=== PATIENT | female | born 1965 | race Caucasian/White ===

== ENCOUNTER 2023-01-08 05:53 | Inpatient (IN) ==
--- NOTE | 2023-01-04 12:47 | Anesthesiology Consultation ---
Date of Service January 04, 2023 Assessment & Plan (1) Encounter for pre-operative examination: - COVID screening: Per assessment on 12/19: No known COVID-19 positive contacts or current COVID-19 related symptoms. Travel screen negative. Patient vaccinated. At surgeon discretion if preop Covid testing being done. - Check test AM DOS - PCP visit (12/04/22): "She is scheduled for lumpectomy at [facility] with Dr. Pereyra. She is also scheduled for lumbar surgery.. Patient cleared for upcoming procedure.. Patient cleared for lumbar surgery as well" - Family history of MH: Patient stated "father's first cousin during surgery from this, but my dad has had surgery before and never had any problems at all." Per clarification note from anesthesiologist (Paige Gonzales, 05/09/22)- "The patient has a family history of Malignant Hyperthermia and not pseudocholinesterase deficiency." > Patient had Right hip scope/bursectomy performed 05/09/22 at [facility] with MH precautions* > OR made aware that MH precautions needed d/t family hx. - Elevated creatinine: Preop labs done 12/04/22 had elevated creatinine at 1.8. No hx of CKD per chart review. Note written to PCP regarding elevated creatinine (Curtis Gunderson PAC)- Awaiting response. Chart Review Chart Review: Patient NOT seen in Pre Admission Testing History Surgery Operation Date: 01/08/23 07:45 Proposed Procedures p L5-S1 Decompression and Fusion, Spinal Cord Monitoring - Tony Gomez, Height/Weight Height: 5 ft 8 in Weight: 67.132 kg Allergies Allergy/AdvReac Type Severity Reaction Status Date / Time Penicillins Allergy Severe SWOLLEN Verified 12/19/22 11:18 LIPS tree nut Allergy Severe facial Verified 12/19/22 11:18 swelling peanuts Allergy Severe Swelling Uncoded 12/19/22 11:18 of Lip/Tongue/Throat Medications Home Medications Medication Instructions Recorded Confirmed Last Taken eszopiclone 2 mg tablet (Lunesta) 2 mg PO HS 05/04/22 12/19/22 05/08/22 fenofibrate nanocrystallized 145 145 mg PO QAM 05/04/22 12/19/22 05/08/22 mg tablet fluticasone 250 mcg-salmeterol 50 1 inh inhalation BID 08/12/19/22 05/09/22 mcg/dose blistr powdr for inhalation (Advair Diskus) levalbuterol tartrate 45 2 inh inhalation Q6H PRN Shortness 05/04/22 12/19/22 04/25/22 mcg/actuation aerosol inhaler Of Breath (Xopenex HFA) lisinopril 10 mg tablet 10 mg PO QAM 05/04/22 12/19/22 05/08/22 omeprazole 40 mg capsule,delayed 40 mg PO QAM 05/04/22 12/19/22 05/08/22 release cyanocobalamin (vitamin B-12) 1,000 mcg IM WK 12/19/22 12/19/22 Unknown 1,000 mcg/mL injection solution glucosamine-chondroitin 250 mg-200 2 tab PO QAM 12/19/22 12/19/22 Unknown mg tablet (Osteo Bi-Flex) tramadol 50 mg tablet 50 mg PO BID PRN Pain 12/19/22 12/19/22 Unknown Past Medical History Medical History Asthma GERD (gastroesophageal reflux disease) History of COVID-19 05/2022- one night fever/fatigue History of Holter monitoring Hx PACs noted per remote cardiology records Hypertension Invasive ductal carcinoma of breast Left breast - lumpectomy with lymph node removal scheduled at [facility] 12/25/22 Past Family History Family History Other No family history of adverse response to anesthesia Past Surgical History Surgical History Family history of malignant hyperthermia Patient stated "father's first cousin during surgery from this, but my dad has had surgery before and never had any problems at all" Per clarification note from anesthesiologist (Paige Gonzales, 05/09/22)- "The patient has a family history of Malignant Hyperthermia and not pseudocholinesterase deficiency." Patient had Right hip scope/bursectomy performed 05/09/22 at [facility] with p recautions* History of breast biopsy left breast History of hip surgery right hip arthroscopy Hx of colonoscopy Hx of wisdom tooth extraction Social History Smoking Status: Never smoker Do You Dip or Chew Tobacco: No Hx Alcohol Use: Yes Alcohol type: wine alcohol intake frequency: 0-2 drinks per day Hx Substance Use: No substance use type: does not use Testing Laboratory Results 12/04/22 WBC 6.0 H/H 11.3/34.6 PLATELETS 448 SODIUM 134 POTASSIUM 4.8 CHLORIDE 98 CO2 23 BUN 51 CREATININE 1.8 GLUCOSE 88 A1C 6.4% UA negative bacteria/nitrite/leukocytes Electrocardiogram Date: 12/04/22 SR at 71bpm. "Within normal limits" Chest X-Ray Date: 12/18/22 No active disease. The lungs are clear. Small metallic clip is seen in the soft tissues of the left breast. Echocardiogram Date: 09/29/18 LVEF 65 to 69%. Normal LV wall motion. No mitral valve prolapse present. Mild MR. Rhythm was sinus tachycardia during TTE. Compared to prior study 11/09/2011, there is no significant change per report.
[2023-01-08] MEDS ORDERED: ACETAMINOPHEN 500 MG TAB PO SCH (06:00)
[2023-01-08] MEDS ORDERED: CLINDAMYCIN/D5W 900 MG/50 ML BAG IV SCH (06:00)
[2023-01-08] MEDS ORDERED: LR 15ML/HR IV SCH (06:00)
[2023-01-08] MEDS ORDERED: CeleBREX 200 MG CAP PO SCH (06:00)
[2023-01-08] MEDS ORDERED: GABAPENTIN 600 MG DOSE PO SCH (06:00)
[2023-01-08 06:46] LABS: BUN Creatinine Ratio 30.4 (10-20); Calcium 10.5 mg/dl (8.6-10.3); Creatinine Clr Calc Pharmacy 55.8 ml/min; Est GFR (Non-African American) 53.5 ml/min; Potassium 4.3 mmol/L (3.5-5.1)
[2023-01-08 06:50] LABS: Pregnancy Test, Serum Negative (Negative)
[2023-01-08 06:56] LABS: Partial Thromboplastin Time 27.3 Seconds (21.0-31.0); Prothrombin Time 10.6 Seconds (9.0-12.0)
[2023-01-08] MEDS ORDERED: PROPOFOL IV EMULSION 10 MG/ML 100 ML VIAL IV ONE (07:03)
[2023-01-08] MEDS ORDERED: MIDAZOLAM HCL 1 MG/ML 2ML VIAL ONE (07:04)
[2023-01-08] MEDS ORDERED: fentaNYL citrate PF 100 MCG/2 ML VIAL ONE (07:04)
[2023-01-08] MEDS ORDERED: ROCURONIUM BROMIDE 10 MG/ML 5 ML VIAL IV ONE ×10 (07:04)
[2023-01-08] MEDS ORDERED: ONDANSETRON INJ 2 MG/ML 2 ML VIAL IV PRN ×2 (07:10→10:34)
[2023-01-08] MEDS ORDERED: ePHEDrine sulfate 50 MG/ML AMP IV PRN (07:10)
[2023-01-08] MEDS ORDERED: PROMETHAZINE HCL 6.25 MG in SODIUM CHLORIDE 0.9% 50 ML IV PRN (07:10)
[2023-01-08] MEDS ORDERED: ATROPINE SULFATE 0.1 MG/ML 10ML SYR IV PRN (07:10)
[2023-01-08] MEDS ORDERED: LIDOCAINE 2% MPF LOCAL 5 ML VIAL ONE (07:11)
[2023-01-08] MEDS ORDERED: ONDANSETRON INJ 2 MG/ML 2 ML VIAL ONE (07:11)
[2023-01-08] MEDS ORDERED: DEXAMETHASONE SOD INJ 4 MG/ML VIAL ONE ×2 (07:11→08:09)
[2023-01-08] MEDS ORDERED: KETAMINE 50 MG/5 ML SYRINGE ONE (07:15)
[2023-01-08] MEDS ORDERED: SUGAMMADEX SODIUM 200 MG/2 ML VIAL IV ONE (07:15)
[2023-01-08] MEDS ORDERED: BUPIVACAINE/EPINEPHRINE 0.25% 1:200,000 30 ML VIAL ONE (07:32)
--- NOTE | 2023-01-08 07:40 | History & Physical Bridge Note ---
Date of Service January 08, 2023 History & Physical Bridge Note I have examined the patient, reviewed the History & Physical and in the interval since the performance of the History & Physical I have noted the following changes of clinical significance: no changes noted
--- NOTE | 2023-01-08 07:41 | History & Physical Report ---
Date of Service January 08, 2023 Assessment & Plan (1) Neurogenic claudication due to lumbar spinal stenosis: Plan: L5-S1 decompression and fusion History of Present Illness Chief Complaint: Back and leg pain Primary Care Provider: Curtis Gunderson This is a 57-year-old female who presents with chronic persistent back and leg pain after failing course of nonoperative care she is here for surgical invention. Allergies Allergy/AdvReac Type Severity Reaction Status Date / Time peanut Allergy Severe Swelling Verified 01/08/23 07:06 of Lip/Tongue/Throat Penicillins Allergy Severe SWOLLEN Verified 01/08/23 06:16 LIPS tree nut Allergy Severe facial Verified 01/08/23 06:16 swelling Home Medications Medication Instructions Recorded Confirmed Type eszopiclone 2 mg tablet (Lunesta) 2 mg PO HS 05/04/22 01/08/23 History fenofibrate nanocrystallized 145 145 mg PO QAM 05/04/22 01/08/23 History mg tablet fluticasone 250 mcg-salmeterol 50 1 inh inhalation BID 05/04/22 01/08/23 History mcg/dose blistr powdr for inhalation (Advair Diskus) levalbuterol tartrate 45 2 inh inhalation Q6H PRN Shortness 05/04/22 01/08/23 History mcg/actuation aerosol inhaler Of Breath (Xopenex HFA) lisinopril 10 mg tablet 10 mg PO QAM 05/04/22 01/08/23 History omeprazole 40 mg capsule,delayed 40 mg PO QAM 05/04/22 01/08/23 History release cyanocobalamin (vitamin B-12) 1,000 mcg IM MONTHLY 12/19/22 01/08/23 History 1,000 mcg/mL injection solution glucosamine-chondroitin 250 mg-200 2 tab PO QAM 12/19/22 01/08/23 History mg tablet (Osteo Bi-Flex) tramadol 50 mg tablet 50 mg PO BID PRN Pain 12/19/22 01/08/23 History Past Med/Surg History Medical History Asthma GERD (gastroesophageal reflux disease) History of COVID-19 05/2022- one night fever/fatigue History of Holter monitoring Hx PACs noted per remote cardiology records Hypertension Invasive ductal carcinoma of breast Left breast - lumpectomy with lymph node removal scheduled at [facility] 12/25/22 Surgical History Family history of malignant hyperthermia Patient stated "father's first cousin during surgery from this, but my dad has had surgery before and never had any problems at all" Per clarification note from anesthesiologist (Paige Gonzales, 05/09/22)- "The patient has a family history of Malignant Hyperthermia and not p seudocholinesterase deficiency." Patient had Right hip scope/bursectomy performed 05/09/[address] [facility] with MH precautions* History of breast biopsy left breast History of hip surgery right hip arthroscopy Hx of colonoscopy Hx of wisdom tooth extraction Family History Other No family history of adverse response to anesthesia Social History Smoking Status: Never smoker Second Hand Exposure: No; Do You Dip or Chew Tobacco: No; Tobacco Cessation Education Requested by Patient: No Hx Alcohol Use: Yes Alcohol type: wine Hx Substance Use: No Preferred Language: Danish Communication Ability: Effective Burnisher Required: No Beliefs That Will Affect Care: None Current Living Situation: Significant Other Other Information That Helps Us Care for You: No Feels Safe at Home: Yes Safety Concerns: Feels Safe At This Time Assistive Devices: Glasses Physical Exam Physical Exam: Patient is alert and oriented Heart regular rhythm Lungs clear Results & Data Results & Data Vital Signs (Past 12 Hours) Vital Signs Temp Pulse Resp BP Pulse Ox O2 Del Method 01/08/23 06:10 37.2 C 88 18 118/86 96 Room Air
[2023-01-08] MEDS ORDERED: FLOSEAL HEMOSTATIC MATRIX 10ML TOP ONE (09:08)
--- NOTE | 2023-01-08 09:24 | Operative Report ---
Post Operative Report Pre & Post Diagnosis Operation Date: 01/08/23 07:45 Pre-Op Diagnosis: Neurogenic claudication due to lumbar spinal stenosis Spondylolisthesis L5-S1 Post-Op Diagnosis: Same I identified the patient and participated in the time-out.: Yes Procedure Operation Date: 01/08/23 07:45 Actual Procedures #1 lumbar impression bilateral facetectomies and foraminotomies L4-5 L5-S1. #2 posterior spinal fusion L5-S1. #3 placement posterior instrumentation L5-S1. #4 interbody fusion L5-S1. #5 placement of Spira 14 x 26 mm at L5-S1. #6 tonia cement locally harvested morselized autograft in the posterior gutters. #7 placement I factor amount of the test and interbody space and posterior lateral gutters. Surgeon Tony Gomez, Masonry Installer Delia Villarreal Estimated Blood Loss 50 Findings Consistent with Post-Op Diagnosis Specimens None Indications This is a 57-year-old female who presents above-mentioned diagnosis and failing course of nonoperative care she is here for the above-mentioned procedure. Description of Procedure Patient was met with identified informed consent obtained. Patient was then taken to the operative suite underwent a patient placed in a prone position the Celestine table on top of the Monty frame. All bony prominences well-padded eyes inspected to ensure no external pressure placed upon them. This point the lumbar spine was prepped and draped in normal sterile fashion. Sharp dissection with the assistance of Bovie cautery to form down to and exposing the lamina and transverse processes of L5 and sacral ala bilaterally. From caudal cephalad fashion complete laminectomy of L5 partial laminectomy of L4 was performed including bilateral medial facetectomies and foraminotomies addressing severe spinal stenosis. Pedicle screws were then placed in L5 and S1 levels bilaterally with assistance of fluoroscopy and the properly sized maria a placed. By way of a trans foraminal approach on the right a complete discectomy of L5-S1 was performed endplates curetted to subcortical bleeding bone and a 14 x 26 mm Spira cage with I factor tapped the position. The rods were then locked into final position bilaterally. The transverse processes of L5 and the sacral ala burred to subcortical bleeding bone. I factor amount of the test and locally harvested morselized autograft placed in the posterior gutters. 15 round LYNN drain inserted. The incision was then closed with 1 Vicryl the fascia 2-0 Vicryl subcutaneously and 4 Monocryl for final skin closure. Steri-Strips and sterile dressings placed. Patient awakened taken to PACU stable condition. Please note spinal cord monitoring was utilized at the procedure no changes note d. Lastly Delia Villarreal was present at the entire surgeon while the patient positioning complex portions of the surgery and final skin closure. I attest to the content of the Intraoperative Record and any orders documented therein. Any exceptions are noted below.
[2023-01-08] MEDS: fentaNYL citrate PF 100 MCG/2 ML VIAL IV PRN ×4 (09:33→09:48)
[2023-01-08] MEDS: HYDROmorphone INJ 1 MG/ML SYRINGE IV PRN ×4 (09:53→10:08)
--- NOTE | 2023-01-08 09:55 | Fluoroscopy Report ---
FL lumbar spine 2-3V CLINICAL HISTORY: L5-S1 DECOMPRESSION AND FUSION TECHNIQUE: 2 views were obtained with the C-arm in the OR with the above procedure. Total fluoroscopy time was 22.1 seconds. Radiation dose was 18.1 mGy. Comparison: None available at the time of this dictation. FINDINGS/IMPRESSION: Intraoperative images were obtained of L5-S1 discectomy and fusion Please correlate with intraoperative fluoroscopy and operative report. ACT 112: Negative or not required by law. Electronically signed by: Jeferson Rubi M.D. 01/08/2023 9:54 AM
[2023-01-08] MEDS ORDERED: LEVALBUTEROL TARTRATE 15 GM HFA.AER.AD INH PRN (10:34)
[2023-01-08] MEDS ORDERED: HYDROmorphone INJ 0.5 MG/0.5 ML SYR IV PRN (10:34)
[2023-01-08] MEDS ORDERED: MAGNESIUM HYDROXIDE SUSP 30 ML UDC PO PRN (10:34)
[2023-01-08] MEDS ORDERED: HYDROmorphone INJ 1 MG/ML SYRINGE IV PRN (10:34)
[2023-01-08] MEDS ORDERED: ALUMINUM/MAGNESIUM SUSP 30 ML UDC PO PRN (10:34)
[2023-01-08] MEDS ORDERED: bisacodyL 10 MG SUPP PR PRN (10:34)
[2023-01-08] MEDS ORDERED: SOD PHOSPHATE/SOD BIPHOSPHATE ENEMA 132 ML BTL PR PRN (10:34)
[2023-01-08] MEDS ORDERED: LORazepam 2 MG/1 ML VIAL IV PRN (10:34)
[2023-01-08] MEDS ORDERED: diphenhydrAMINE Capsule 25 MG CAP PO PRN (10:34)
[2023-01-08] MEDS ORDERED: hydrOXYzine HCl 25 MG TAB PO PRN (10:34)
[2023-01-08] MEDS ORDERED: ACETAMINOPHEN 500 MG TAB PO PRN (10:34)
[2023-01-08] MEDS ORDERED: NALOXONE HCL 0.4 MG/1 ML VIAL/CARP IV PRN (10:34)
[2023-01-08] MEDS ORDERED: traMADol HCL 50 MG TABLET PO PRN (10:34)
[2023-01-08] MEDS ORDERED: ACETAMINOPHEN 1,000 MG/100 ML VIAL IV PRN (10:34)
[2023-01-08] MEDS ORDERED: ONDANSETRON 4 MG OD TAB PO PRN (10:34)
[2023-01-08] MEDS ORDERED: FAMOTIDINE 20 MG TAB PO PRN (10:34)
[2023-01-08] MEDS ORDERED: METOCLOPRAMIDE HCL INJ 5 MG/ML 2 ML VIAL IV PRN (10:34)
[2023-01-08] MEDS ORDERED: PROMETHAZINE HCL 12.5 MG in SODIUM CHLORIDE 0.9% 50 ML IV PRN (10:34)
[2023-01-08] MEDS ORDERED: DO NOT ADMINISTER PNEUMOCOCCAL VACCINE PRN (10:34)
[2023-01-08] MEDS ORDERED: DO NOT ADMINISTER FLU VACCINE PRN (10:34)
[2023-01-08] MEDS ORDERED: LORazepam 0.5 MG TAB PO PRN (10:34)
[2023-01-08] MEDS: LACTATED RINGER'S 1,000 ML IV SCH ×2 (10:35→21:34)
--- NOTE | 2023-01-08 11:02 | Consultation ---
Date of Consultation January 08, 2023 Assessment & Plan (1) Neurogenic claudication due to lumbar spinal stenosis: (2) Hypertension: (3) Invasive ductal carcinoma of breast: (4) Asthma: (5) GERD (gastroesophageal reflux disease): Plan 57 year old female that presented today for decompression and fusion surgery under the care of Dr. Gomez after chronic back pain persisted with failed conservative management. Additional PMH HTN, HLD, asthma, ductal carcinoma of left breast. Pt progressing well in her recovery. Neurogenic claudication d/t lumbar spine stenosis: POD# 0 s/p L5-S1 decompression and fusion under the care of Dr. Gomez. EBL: 50mL Per ortho for pain control, wound care, anticoagulation and activities. Monitor H&H, continue incentive spirometry (demonstrated appropriate use) PT/OT when appropriate HTN: Takes Lisinopril; hold for today; restart tomorrow as ordered Creatinine 1.15 HLD: Takes Fenofibrate Asthma: stable Takes Advair and Xopenex PRN; continue Invasive ductal carcinoma of left breast: Left lumpectomy performed at [facility] on 12/25/22 Clean margins; no current role for chemotherapy Planning for radiation and oral Tamoxifen GERD: Takes Omeprazole; continue Disposition: PCP: Dr. Gunderson Code Status: Full Code VTE Prophylaxis: Teds and SCDs per surgical team I spent a total of 45 minutes coordinating, documenting, and providing care for this patient excluding time spent in the performance of separately billed services. All of the aforementioned completed while collaborating with the assigned attending physician for a full treatment plan. Please see their addendum for further details. Supervising Physician Co-Signing Physician Notes Pt is 57 y/o F with hx of L breast Ca s/p lumpectomy (with planning for rad iation), HTN, HLD, Asthma, Insomnia, GERD and L DDD admitted for L5-S1 discectomy and fusion and consulted for medical co-management. PE: NAD, well developed Lungs: CTA, no wheezing or crackles Cardiac: Normal S1/S2, no murmur Abd: ND, NT, soft MSK: able to move b/l toes and feet Psych: AAOx3, normal affect A/P: S/P L5-S1 discectomy and fusion: -POD#0 -pt is recovering well and normal VS -PT/OT -Pain management per primary team HTN: -due to low normal BP will hold Lisinopril 10mg today Asthma/Insomnia/GERD/HLD: -continue home meds Agree with A/P by AV Garcia History of Present Illness Requesting Physician: Dr. Gomez Reason for Consultation: post operative medical management Attending Physician: Tony Gomez, DO History of Present Illness Ms. Almaraz presented to the [facility] to proceed with an elective, planned decompression and fusion surgery of L5-S1 under the care of Dr. Gomez after failed conservative management. EBL 50mL without complications. Additional PMH includes HTN, HLD, asthma, ductal carcinoma of left breast, and GERD. Left lumpectomy was performed at [facility] on 12/25/22 with clean margins; no current role for chemotherapy, but planning for radiation and oral Tamoxifen. Pt denies GREEN, dizziness, lightheadedness, SOB, CP, palpitations, N/V/D, abdominal pain. Pt sitting in her hospital bed in no apparent distress. She is AAOx4 and has tolerated sips of clear liquids and denies neuopathic pain. Pt has LYNN drain x1 with shelly red blood. [facility] Hospitalist service was consulted for post-operative medical management. Thank you kindly for the consultation. We are available 08/04 for additional support. Please feel free to contact us via tiger text. Please see A/P for further details. Allergies Allergy/AdvReac Type Severity Reaction Status Date / Time peanut Allergy Severe Swelling Verified 01/08/23 07:06 of Lip/Tongue/Throat Penicillins Allergy Severe SWOLLEN Verified 01/08/23 06:16 LIPS tree nut Allergy Severe facial Verified 01/08/23 06:16 swelling Home Medications Medication Instructions Recorded Confirmed Type eszopiclone 2 mg tablet (Lunesta) 2 mg PO HS 05/04/22 01/08/23 History fenofibrate nanocrystallized 145 145 mg PO QAM 05/04/22 01/08/23 History mg tablet fluticasone 250 mcg-salmeterol 50 1 inh inhalation BID 05/04/22 01/08/23 History mcg/dose blistr powdr for inhalation (Advair Diskus) levalbuterol tartrate 45 2 inh inhalation Q6H PRN Shortness 05/04/22 01/08/23 History mcg/actuation aerosol inhaler Of Breath (Xopenex HFA) lisinopril 10 mg tablet 10 mg PO QAM 05/04/22 01/08/23 History omeprazole 40 mg capsule,delayed 40 mg PO QAM 05/04/22 01/08/23 History release cyanocobalamin (vitamin B-12) 1,000 mcg IM MONTHLY 12/19/22 01/08/23 History 1,000 mcg/mL injection solution glucosamine-chondroitin 250 mg-200 2 tab PO QAM 12/19/22 01/08/23 History mg tablet (Osteo Bi-Flex) tramadol 50 mg tablet 50 mg PO BID PRN Pain 12/19/22 01/08/23 History oxycodone 5 mg tablet 5 mg PO DAILY PRN pain #30 tabs 01/08/23 Rx tramadol 50 mg tablet 50 mg PO Q6H PRN pain, moderate 01/08/23 Rx #30 tabs Patient History Medical History (Updated 01/08/23 @ 10:57 by AV Benz) Asthma GERD (gastroesophageal reflux disease) History of COVID-19 05/2022- one night fever/fatigue History of Holter monitoring Hx PACs noted per remote cardiology records Hypertension Invasive ductal carcinoma of breast Left breast - lumpectomy with lymph node removal scheduled at [facility] 12/25/22 Surgical History Family history of malignant hyperthermia Patient stated "father's first cousin during surgery from this, but my dad has had surgery before and never had any problems at all" Per clarification note from anesthesiologist (Paige Gonzales, 05/09/22)- "The patient has a family history of Malignant Hyperthermia and not pseudocholinesterase deficiency." Patient had Right hip scope/bursectomy performed 05/09/22 at [facility] with MH precautions* History of breast biopsy left breast History of hip surgery right hip arthroscopy Hx of colonoscopy Hx of wisdom tooth extraction Family History Other No family history of adverse response to anesthesia Social History Smoking Status: Never smoker Second Hand Exposure: No; Do You Dip or Chew Tobacco: No; Tobacco Cessation Education Requested by Patient: No Hx Alcohol Use: Yes Alcohol type: wine Hx Substance Use: No Preferred Language: Chilean Communication Ability: Effective Dance Professor Required: No Beliefs That Will Affect Care: None Current Living Situation: Significant Other Other Information That Helps Us Care for You: No Feels Safe at Home: Yes Safety Concerns: Feels Safe At This Time Assistive Devices: Glasses Review of Systems Review of Systems: Neuro: (-) Falls, trauma, slurred speech HEENT: (-) GREEN, dizziness, dysphagia, visual or auditory changes CV: (-) CP, palpitations, swelling Resp: (-) SOB GI: (-) appetite changes, N/V/D, bowel changes : (-) urinary changes Skin: (-) rashes Psych: (-) anxiety, depression Physical Exam Physical Exam: See De. [place]'prachi physical examination Results & Data Vital Signs (Past 12 Hours) Vital Signs Temp Pulse Pulse Resp BP BP Pulse Ox 01/08/23 10:32 36.8 C 82 18 128/74 99 01/08/23 10:25 36.4 C L 97 H 12 115/69 97 01/08/23 10:15 81 22 116/74 96 01/08/23 09:45 36.5 C 80 21 120/74 97 01/08/23 10:05 87 24 125/81 98 01/08/23 09:55 82 15 121/75 95 01/08/23 09:35 83 18 109/85 97 01/08/23 09:29 36.5 C 78 17 110/62 99 01/08/23 06:10 37.2 C 88 18 118/86 96 O2 Del Method O2 Flow Rate 01/08/23 10:32 Room Air 01/08/23 10:25 Room Air 01/08/23 10:15 Room Air 01/08/23 09:45 Room Air 01/08/23 10:05 Room Air 01/08/23 09:55 Room Air 01/08/23 09:35 Room Air 01/08/23 09:29 Oxymask 6 01/08/23 06:10 Room Air Diagnostic Findings Lumbar Spine X-Ray 01/08/23 07:45 FL lumbar spine 2-3V CLINICAL HISTORY: L5-S1 DECOMPRESSION AND FUSION TECHNIQUE: 2 views were obtained with the C-arm in the OR with the above p rocedure. Total fluoroscopy time was 22.1 seconds. Radiation dose was 18.1 mGy. Comparison: None available at the time of this dictation. FINDINGS/IMPRESSION: Intraoperative images were obtained of L5-S1 discectomy and fusion Please correlate with intraoperative fluoroscopy and operative report. ACT 112: Negative or not required by law. Electronically signed by: Jeferson Rubi M.D. 01/08/2023 9:54 AM
[2023-01-08] MEDS: FLUTICASONE/VILANTEROL 200/25MCG 14 PUFFS/INHALER INH SCH (11:57)
[2023-01-08] MEDS: oxyCODONE HCL IR 5 MG TAB (IMMEDIATE RELEASE) PO PRN ×2 (12:01→20:12)
--- NOTE | 2023-01-08 12:29 | Anesthesiology Progress Note ---
Date of Service January 08, 2023 Anesthesia Post Procedure Vital Signs Vital Signs: Temp Pulse Pulse Resp BP BP Pulse Ox 01/08/23 11:30 87 18 135/83 98 01/08/23 11:10 01/08/23 11:02 36.7 C 90 18 125/80 96 01/08/23 10:32 36.8 C 82 18 128/74 99 01/08/23 10:25 36.4 C L 97 H 12 115/69 97 01/08/23 10:15 81 22 116/74 96 01/08/23 09:45 36.5 C 80 21 120/74 97 01/08/23 10:05 87 24 125/81 98 01/08/23 09:55 82 15 121/75 95 01/08/23 09:35 83 18 109/85 97 01/08/23 09:29 36.5 C 78 17 110/62 99 01/08/23 06:10 37.2 C 88 18 118/86 96 O2 Del Method O2 Flow Rate 01/08/23 11:30 Room Air 01/08/23 11:10 Room Air 01/08/23 11:02 Room Air 01/08/23 10:32 Room Air 01/08/23 10:25 Room Air 01/08/23 10:15 Room Air 01/08/23 09:45 Room Air 01/08/23 10:05 Room Air 01/08/23 09:55 Room Air 01/08/23 09:35 Room Air 01/08/23 09:29 Oxymask 6 01/08/23 06:10 Room Air Pain Intensity Back: Pain Intensity: 5 Transfer of Care Handoff Completed per policy Notes Mental Status: alert / awake / arousable and participated in evaluation Patient Amnestic to Procedure: Yes Nausea / Vomiting: adequately controlled Pain: adequately controlled Airway Patency, RR, SpO2: stable & adequate BP & HR: stable & adequate Hydration State: stable & adequate Anesthetic Complications: no major complications apparent and Pt Satisfied with anesthetic care
[2023-01-08] MEDS: CLINDAMYCIN/D5W 600 MG/50 ML BAG IV SCH (17:04)
[2023-01-08] MEDS: DOCUSATE SODIUM/SENNA 50/8.6MG TAB PO SCH (20:12)
[2023-01-08] MEDS: ESZOPICLONE 1 MG TAB PO SCH (21:29)
[2023-01-08] MEDS ORDERED: SIMETHICONE 80 MG CHEW PO STA (21:31)
[2023-01-09] MEDS: CLINDAMYCIN/D5W 600 MG/50 ML BAG IV SCH (00:28)
[2023-01-09] MEDS: oxyCODONE HCL IR 5 MG TAB (IMMEDIATE RELEASE) PO PRN ×3 (05:17→20:13)
[2023-01-09] MEDS: POLYETHYLENE (MIRALAX) 17 GM PACK PO SCH ×4 (05:18→22:00)
[2023-01-09] MEDS: LACTATED RINGER'S 1,000 ML IV SCH (06:34)
[2023-01-09 07:36] LABS: Basophils # (auto) 0.02 K/uL (0-0.2); Basophils % (auto) 0.3 %; Eosinophils # (auto) 0.14 K/uL (0-0.50); Eosinophils % (auto) 1.8 %; Hematocrit (blood only) 32.5 % (37.0-47.0); Immature Granulocytes # (auto) 0.06 K/uL (0.01-0.20); Immature Granulocytes % (auto) 0.8 %; Lymphocytes # (auto) 1.88 K/uL (1.2-3.4); Lymphocytes % (auto) 24.4 %; Mean Corpuscular Hemoglobin 31.3 pg (25.0-34.0); Mean Corpuscular Hgb Conc 33.8 g/dL (32.0-36.0); Mean Corpuscular Volume 92.6 fL (80.0-100.0); Mean Platelet Volume 10.1 fL (9.4-12.4); Monocytes % (auto) 10.4 %; Neutrophils # (auto) 4.81 K/uL (1.40-6.50); Neutrophils % (auto) 62.3 %; Platelet Count 394 K/uL (130-400); RDW Coefficient of Variation 13.2 % (11.5-14.5); Red Blood Count 3.51 M/uL (4.20-5.40); White Blood Count 7.71 K/ul (4.8-10.8)
[2023-01-09] MEDS: FENOFIBRATE NANOCRYSTALLIZED 145 MG TABLET PO SCH (07:53)
[2023-01-09] MEDS: dexAMETHasone 6 MG in SYRINGE 0 ML IV SCH (07:53)
[2023-01-09] MEDS: lisinopril 10 MG TAB PO SCH (07:53)
[2023-01-09] MEDS: PANTOprazole 40 MG TAB PO SCH (07:53)
[2023-01-09] MEDS: FLUTICASONE/VILANTEROL 200/25MCG 14 PUFFS/INHALER INH SCH (07:53)
[2023-01-09] MEDS ORDERED: CYANOCOBALAMIN 1000 MCG/ML VIAL IM SCH (09:00)
[2023-01-09 09:18] LABS: BUN Creatinine Ratio 19.8 (10-20); Calcium 9.6 mg/dl (8.6-10.3); Creatinine Clr Calc Pharmacy 63.5 ml/min; Est GFR (African American) 72.6 ml/min; Est GFR (Non-African American) 62.6 ml/min; Potassium 4.1 mmol/L (3.5-5.1)
[2023-01-09] MEDS ORDERED: SIMETHICONE 80 MG CHEW PO PRN (13:10)
--- NOTE | 2023-01-09 13:10 | Hospitalist Progress Note ---
Date of Service January 09, 2023 Assessment & Plan (1) Neurogenic claudication due to lumbar spinal stenosis: (2) Hypertension: (3) Invasive ductal carcinoma of breast: (4) Asthma: (5) GERD (gastroesophageal reflux disease): Plan 57 year old female that presented today for decompression and fusion surgery under the care of Dr. Gomez after chronic back pain persisted with failed conservative management. Additional PMH HTN, HLD, asthma, ductal carcinoma of left breast. Pt progressing well in her recovery. Neurogenic claudication d/t lumbar spine stenosis: POD# 1 s/p L5-S1 decompression and fusion under the care of Dr. Gomez. EBL: 50mL Per ortho for pain control, wound care, anticoagulation and activities. Monitor H&H, continue incentive spirometry (demonstrated appropriate use) PT/OT when appropriate HTN: Takes Lisinopril; hold for today; restart tomorrow as ordered, parameters placed Creatinine 1.15 HLD: Takes Fenofibrate Asthma: stable Takes Advair and Xopenex PRN; continue Invasive ductal carcinoma of left breast: Left lumpectomy performed at [facility] on 12/25/22 Clean margins; no current role for chemotherapy Planning for radiation and oral Tamoxifen GERD: Takes Omeprazole; continue Disposition: PCP: Dr. Gunderson Code Status: Full Code VTE Prophylaxis: Teds and SCDs per surgical team I spent a total of 40 minutes coordinating, documenting, and providing care for this patient excluding time spent in the performance of separately billed services. All of the aforementioned completed while collaborating with the assigned attending physician for a full treatment plan. Please see their addendum for further details. Admission and Anticipated Discharge Date Admission Date: January 08, 2023 Supervising Physician Co-Signing Physician Notes Pt seen and examined by me, care coordinated w/ BYohan Guzman PA-C, please refer to her note above for further detail. Patient status post lumbar surgery, and she feels well. Says that she can finally walk, without having right lower extremity pain. Denies any fevers chills chest pain shortness of breath. Denies abdominal pain nausea vomiting. Heart sounds regular, lung sounds clear to auscultation. Abdomen soft nontender nondistended. Patient moves extremities. Hgb down to 11, cont. to monitor. MD Tri Subjective Patient seen and examined in room 308. Follow-up lumbar surgery. "This is the best I ever felt." Denies pain except for mild incisional pain. Denies f/c/s, chest pain, sob, n/v/d, abd pain. Passing flatus no stool. Review of Systems Review of Systems: All systems reviewed & are unremarkable except as noted in HPI & below Physical Exam Physical Exam: Gen: WD/WN, NAD, A&O x3 HEENT: Normocephalic, atraumatic, conjunctivae moist, sclerae anicteric, mucous membranes moist. Lung: Clear to Auscultation bilaterally, no wheezes/rales/rhonchi Heart: Regular rate, regular rhythm, no murmurs, rubs, or gallops Abdomen: Soft, NT, ND +BS x 4 Extremities: No edema, lumbar dressing CDI, LYNN drain with serosang drainage Skin: Warm, no rash, negative turgor. Results & Data Results & Data Vital Signs (Past 12 Hours) Vital Signs Temp Pulse Pulse Resp BP Pulse Ox O2 Del Method 01/09/23 11:13 36.8 C 96 H 16 106/71 95 Room Air 01/09/23 09:59 Room Air 01/09/23 07:16 37.0 C 90 16 130/75 99 Room Air 01/09/23 02:10 36.7 C 92 H 16 109/64 96 Room Air Laboratory Results Short CBC 01/09/23 Range/Units 07:07 WBC 7.71 (4.8-10.8) K/ul Hgb 11.0 L (12.0-16.0) g/dl Hct 32.5 L (37.0-47.0) % Plt Count 394 (130-400) K/uL BMP 01/09/23 07:07 Sodium 136 Potassium 4.1 Chloride 100 Carbon Dioxide 28 BUN 20 Creatinine 1.01 Glucose 102 H Calcium 9.6 Medications Administered Current Inpatient Medications Acetaminophen (Acetaminophen 500 Mg Tab) 1,000 mg PO Q8H PRN PRN Reason: MILD Pain Scale 1,2,3 & Pre PT Stop: 02/07/23 10:33 Last Admin: 01/09/23 07:55 Dose: 1,000 mg Al Hydrox/Mg Hydrox/Simethicone (Aluminum/Magnesium Susp 30 Ml Udc) 30 ml PO Q6H PRN PRN Reason: Dyspepsia Stop: 02/07/23 10:33 Last Admin: 01/08/23 20:13 Dose: 30 ml Bisacodyl (Bisacodyl 10 Mg Supp) 10 mg [place] DAILY PRN PRN Reason: Constipation Stop: 02/07/23 10:33 Cyanocobalamin (Cyanocobalamin 1000 Mcg/Ml Vial) 1,000 mcg IM Q30D@0900 [facility] Stop: 02/08/23 08:59 Last Admin: 01/09/23 07:52 Dose: Not Given Diphenhydramine HCl (Diphenhydramine Capsule 25 Mg Cap) 25 mg PO Q6H PRN PRN Reason: Allergic Rhinitis/Insomnia Stop: 02/07/23 10:33 Eszopiclone (Eszopiclone 1 Mg Tab) 2 mg PO HS [facility] Stop: 02/07/23 20:59 Last Admin: 01/08/23 21:29 Dose: 2 mg Famotidine (Famotidine 20 Mg Tab) 20 mg PO Q12H PRN PRN Reason: Dyspepsia Stop: 02/07/23 10:33 Fenofibrate (Fenofibrate Nanocrystallized 145 Mg Tablet) 145 mg PO QAM [facility] Stop: 02/08/23 08:59 Last Admin: 01/09/23 07:53 Dose: 145 mg Fluticasone/Vilanterol (Fluticasone/Vilanterol 200/25mcg 14 Puffs/Inhaler) 1 puffs INH DAILY [facility] Stop: 02/07/23 11:29 Last Admin: 01/09/23 07:53 Dose: 1 puffs Hydromorphone HCl (Hydromorphone Inj 0.5 Mg/0.5 Ml Syr) 0.5 mg IV Q3H PRN PRN Reason: MODERATE Pain (Scale 4,5,6) & Pre PT Stop: 01/22/23 10:33 Hydromorphone HCl (Hydromorphone Inj 1 Mg/Ml Syringe) 1 mg IV Q3H PRN PRN Reason: SEVERE Pain (Scale 7,8,9,10) Stop: 01/22/23 10:33 Hydroxyzine HCl (Hydroxyzine Hcl 25 Mg Tab) 25 mg PO Q8H PRN PRN Reason: Anxiety Stop: 02/07/23 10:33 Lactated Ringer's (Lr) 1,000 mls @ 100 mls/hr IV .Q10H [facility] Stop: 02/07/23 10:33 Last Admin: 01/09/23 06:34 Dose: Not Given Promethazine HCl 12.5 mg/ (Sodium Chloride) 50.5 mls @ 202 mls/hr IV Q6H PRN PRN Reason: Nausea &/or Vomiting Stop: 02/07/23 10:33 Dexamethasone 6 mg/ Syringe 1.5 mls @ 1 mls/min IV DAILY [facility] Stop: 01/11/23 09:02 Last Admin: 01/09/23 07:53 Dose: 1 mls/min Influenza Virus Vaccine Quadrival (Do Not Administer Flu Vaccine) 1 each N/A PRN PRN PRN Reason: Notification Stop: 02/07/23 10:33 Levalbuterol HCl (Levalbuterol Tartrate 15 Gm Hfa.Aer.Ad) 2 puffs INH Q6H PRN PRN Reason: Shortness Of Breath Stop: 02/07/23 10:33 Lisinopril (Lisinopril 10 Mg Tab) 10 mg PO QAM [facility] Stop: 02/08/23 08:59 Last Admin: 01/09/23 07:53 Dose: 10 mg Lorazepam (Lorazepam 0.5 Mg Tab) 0.5 mg PO Q8H PRN PRN Reason: Sedation/Anxiety Stop: 02/07/23 10:33 Lorazepam (Lorazepam 2 Mg/1 Ml Vial) 0.5 mg IV Q8H PRN PRN Reason: Sedation/Anxiety Stop: 02/07/23 10:33 Magnesium Hydroxide (Magnesium Hydroxide Susp 30 Ml Udc) 30 ml PO Q24H PRN PRN Reason: Constipation Stop: 02/07/23 10:33 Metoclopramide HCl (Metoclopramide Hcl Inj 5 Mg/Ml 2 Ml Vial) 10 mg IV Q6H PRN PRN Reason: Nausea &/or Vomiting Stop: 02/07/23 10:33 Naloxone HCl (Naloxone Hcl 0.4 Mg/1 Ml Vial/Carp) 0.1 mg IV Q5M PRN PRN Reason: Oversedation/Resp depression Stop: 02/07/23 10:33 Ondansetron HCl (Ondansetron Inj 2 Mg/Ml 2 Ml Vial) 4 mg IV Q6H PRN PRN Reason: Nausea &/or Vomiting Stop: 02/07/23 10:33 Ondansetron HCl (Ondansetron 4 Mg Od Tab) 4 mg PO Q6H PRN PRN Reason: Nausea Stop: 02/07/23 10:33 Oxycodone HCl (Oxycodone Hcl Ir 5 Mg Tab (Immediate Release)) 5 - 10 mg PO Q4H PRN PRN Reason: Pain & Pre PT Stop: 01/22/23 10:33 Last Admin: 01/09/23 12:20 Dose: 10 mg Pantoprazole Sodium (Pantoprazole 40 Mg Tab) 40 mg PO QAM [facility] Stop: 02/08/23 08:59 Last Admin: 01/09/23 07:53 Dose: 40 mg Pneumococcal Polyvalent Vaccine (Do Not Administer Pneumococcal Vaccine) 1 each N/A PRN PRN PRN Reason: Notification Stop: 02/07/23 10:33 Polyethylene Glycol (Polyethylene (Miralax) 17 Gm Pack) 17 gm PO Q6 [facility] Stop: 02/08/23 05:59 Last Admin: 01/09/23 12:10 Dose: Not Given Senna/Docusate Sodium (Docusate Sodium/Senna 50/8.6mg Tab) 2 tab PO HS [facility] Stop: 02/07/23 20:59 Last Admin: 01/08/23 20:12 Dose: 2 tab Sodium Biphosphate/Sodium Phosphate (Sod Phosphate/Sod Biphosphate Enema 132 Ml Btl) 132 ml OK ONE PRN PRN Reason: Constipation Stop: 02/07/23 10:33 Tramadol HCl (Tramadol Hcl 50 Mg Tablet) 50 - 100 mg PO Q4H PRN PRN Reason: Moderate-Severe pain & Pre PT Stop: 02/07/23 10:33
[2023-01-09] MEDS ORDERED: SIMETHICONE 80 MG CHEW PO ONE (13:46)
--- NOTE | 2023-01-09 14:08 | Orthopedic Progress Note ---
Date of Service January 09, 2023 Assessment & Plan (1) Neurogenic claudication due to lumbar spinal stenosis: Plan: This time continue physical therapy monitor LYNN operatively discharge home in the next few days. Admission and Anticipated Discharge Date Admission Date: January 08, 2023 Subjective Back pain controlled leg pain markedly improved Physical Exam Physical Exam: Patient is good strength testing markedly comfortable. She is in the chair at the bedside. Results & Data Vital Signs (Past 12 Hours) Vital Signs Temp Pulse Pulse Resp BP Pulse Ox O2 Del Method 01/09/23 11:13 36.8 C 96 H 16 106/71 95 Room Air 01/09/23 09:59 Room Air 01/09/23 07:16 37.0 C 90 16 130/75 99 Room Air 01/09/23 02:10 36.7 C 92 H 16 109/64 96 Room Air
[2023-01-09] MEDS: DOCUSATE SODIUM/SENNA 50/8.6MG TAB PO SCH (20:13)
[2023-01-09] MEDS: ESZOPICLONE 1 MG TAB PO SCH (21:58)
[2023-01-10] MEDS: POLYETHYLENE (MIRALAX) 17 GM PACK PO SCH (05:40)
[2023-01-10 07:39] LABS: Hematocrit (blood only) 33.4 % (37.0-47.0); Hemoglobin 11.2 g/dl (12.0-16.0); Mean Corpuscular Hemoglobin 31.3 pg (25.0-34.0); Mean Corpuscular Hgb Conc 33.5 g/dL (32.0-36.0); Mean Corpuscular Volume 93.3 fL (80.0-100.0); Mean Platelet Volume 10.2 fL (9.4-12.4); Platelet Count 394 K/uL (130-400); RDW Coefficient of Variation 13.4 % (11.5-14.5); RDW Standard Deviation 46.2 fL (36.4-46.3); Red Blood Count 3.58 M/uL (4.20-5.40); White Blood Count 7.76 K/ul (4.8-10.8)
[2023-01-10 07:52] LABS: BUN Creatinine Ratio 23.2 (10-20); Creatinine Clr Calc Pharmacy 67.5 ml/min; Est GFR (African American) 78.2 ml/min; Est GFR (Non-African American) 67.4 ml/min; Potassium 4.3 mmol/L (3.5-5.1)
--- NOTE | 2023-01-10 08:13 | Hospitalist Progress Note ---
Date of Service January 10, 2023 Assessment & Plan (1) Neurogenic claudication due to lumbar spinal stenosis: (2) Hypertension: (3) Invasive ductal carcinoma of breast: (4) Asthma: (5) GERD (gastroesophageal reflux disease): Plan 57 year old female that presented today for decompression and fusion surgery under the care of Dr. Gomez after chronic back pain persisted with failed conservative management. Additional PMH HTN, HLD, asthma, ductal carcinoma of left breast. Pt progressing well in her recovery. Neurogenic claudication d/t lumbar spine stenosis: POD# 2 s/p L5-S1 decompression and fusion under the care of Dr. Gomez. Per ortho for pain control, wound care, anticoagulation and activities. Monitor H&H, continue incentive spirometry (demonstrated appropriate use) Current Hgb 11.2 - stable from yesterday PT/OT when appropriate HTN: Restart Lisinopril Creatinine 0.9 HLD: Takes Fenofibrate Asthma: stable Takes Advair and Xopenex PRN; continue Invasive ductal carcinoma of left breast: Left lumpectomy performed at [facility] on 12/25/22 Clean margins; no current role for chemotherapy Planning for radiation and oral Tamoxifen GERD: Takes Omeprazole; continue Disposition: PCP: Dr. Gunderson Code Status: Full Code VTE Prophylaxis: Teds and SCDs per surgical team Admission and Anticipated Discharge Date Admission Date: January 08, 2023 Subjective Patient seen in follow up, of med consult, s/p spinal surgery Sitting up in chair, in NAD Feels well, denies any pain in R LE, able to ambulate and she is very excited about that Some soreness at back from surgery No fevers, chills, chest pain, shortness of breath, n/v/d, abd pain. Passing flatus no stool. Review of Systems Review of Systems: All systems reviewed & are unremarkable except as noted in Subjective Physical Exam Physical Exam: Gen: WD/WN, NAD, A&O x3 HEENT: Normocephalic, atraumatic, conjunctivae moist, sclerae anicteric, mucous membranes moist. Lung: Clear to Auscultation bilaterally, no wheezes/rales/rhonchi Heart: Regular rate, regular rhythm, no murmurs, rubs, or gallops Abdomen: Soft, NT, ND +BS x 4 Extremities: No edema, lumbar dressing CDI, LYNN drain with serosang drainage Skin: Warm, no rash, negative turgor. Results & Data Results & Data Vital Signs (Past 12 Hours) Vital Signs Temp Pulse Resp BP Pulse Ox O2 Del Method 01/10/23 07:49 36.9 C 95 H 16 113/80 99 Room Air 01/09/23 22:03 36.5 C 89 18 117/70 99 Room Air Laboratory Results 01/10/23 01/10/23 01/09/23 Range/Units 07:00 07:00 07:07 WBC 7.76 (4.8-10.8) K/ul RBC 3.58 L (4.20-5.40) M/uL Hgb 11.2 L (12.0-16.0) g/dl Hct 33.4 L (37.0-47.0) % MCV 93.3 (80.0-100.0) fL MCH 31.3 (25.0-34.0) pg MCHC 33.5 (32.0-36.0) g/dL RDW Std Deviation 46.2 (36.4-46.3) fL RDW Coeff of Lucrecia 13.4 (11.5-14.5) % Plt Count 394 (130-400) K/uL MPV 10.2 (9.4-12.4) fL Sodium 135 L 136 (136-145) mmol/L Potassium 4.3 4.1 (3.5-5.1) mmol/L Chloride 100 100 (98-107) mmol/L Carbon Dioxide 28 28 (21-32) mmol/L Anion Gap 7 8 (3-11) BUN 22 20 (6-23) mg/dl Creatinine 0.95 1.01 (0.6-1.2) mg/dl Est Cr Clr Drug Dosing 67.5 63.5 ml/min Est GFR ( Amer) 78.2 72.6 ml/min Est GFR (Non-Af Amer) 67.4 62.6 ml/min BUN/Creatinine Ratio 23.2 H 19.8 (10-20) Glucose 94 102 H (70-99(Fasting)) mg/dl Calcium 10.0 9.6 (8.6-10.3) mg/dl Medications Administered Current Inpatient Medications Acetaminophen (Acetaminophen 500 Mg Tab) 1,000 mg PO Q8H PRN PRN Reason: MILD Pain Scale 1,2,3 & Pre PT Stop: 02/07/23 10:33 Last Admin: 01/09/23 07:55 Dose: 1,000 mg Al Hydrox/Mg Hydrox/Simethicone (Aluminum/Magnesium Susp 30 Ml Udc) 30 ml PO Q6H PRN PRN Reason: Dyspepsia Stop: 02/07/23 10:33 Last Admin: 01/08/23 20:13 Dose: 30 ml Bisacodyl (Bisacodyl 10 Mg Supp) 10 mg [place] DAILY PRN PRN Reason: Constipation Stop: 02/07/23 10:33 Cyanocobalamin (Cyanocobalamin 1000 Mcg/Ml Vial) 1,000 mcg IM Q30D@0900 [facility] Stop: 02/08/23 08:59 Last Admin: 01/09/23 07:52 Dose: Not Given Diphenhydramine HCl (Diphenhydramine Capsule 25 Mg Cap) 25 mg PO Q6H PRN PRN Reason: Allergic Rhinitis/Insomnia Stop: 02/07/23 10:33 Eszopiclone (Eszopiclone 1 Mg Tab) 2 mg PO HS [facility] Stop: 02/07/23 20:59 Last Admin: 01/09/23 21:58 Dose: 2 mg Famotidine (Famotidine 20 Mg Tab) 20 mg PO Q12H PRN PRN Reason: Dyspepsia Stop: 02/07/23 10:33 Fenofibrate (Fenofibrate Nanocrystallized 145 Mg Tablet) 145 mg PO QAM [facility] Stop: 02/08/23 08:59 Last Admin: 01/09/23 07:53 Dose: 145 mg Fluticasone/Vilanterol (Fluticasone/Vilanterol 200/25mcg 14 Puffs/Inhaler) 1 puffs INH DAILY [facility] Stop: 02/07/23 11:29 Last Admin: 01/09/23 07:53 Dose: 1 puffs Hydromorphone HCl (Hydromorphone Inj 0.5 Mg/0.5 Ml Syr) 0.5 mg IV Q3H PRN PRN Reason: MODERATE Pain (Scale 4,5,6) & Pre PT Stop: 01/22/23 10:33 Hydromorphone HCl (Hydromorphone Inj 1 Mg/Ml Syringe) 1 mg IV Q3H PRN PRN Reason: SEVERE Pain (Scale 7,8,9,10) Stop: 01/22/23 10:33 Hydroxyzine HCl (Hydroxyzine Hcl 25 Mg Tab) 25 mg PO Q8H PRN PRN Reason: Anxiety Stop: 02/07/23 10:33 Promethazine HCl 12.5 mg/ (Sodium Chloride) 50.5 mls @ 202 mls/hr IV Q6H PRN PRN Reason: Nausea &/or Vomiting Stop: 02/07/23 10:33 Dexamethasone 6 mg/ Syringe 1.5 mls @ 1 mls/min IV DAILY [facility] Stop: 01/11/23 09:02 Last Admin: 01/09/23 07:53 Dose: 1 mls/min Influenza Virus Vaccine Quadrival (Do Not Administer Flu Vaccine) 1 each N/A PRN PRN PRN Reason: Notification Stop: 02/07/23 10:33 Levalbuterol HCl (Levalbuterol Tartrate 15 Gm Hfa.Aer.Ad) 2 puffs INH Q6H PRN PRN Reason: Shortness Of Breath Stop: 02/07/23 10:33 Lisinopril (Lisinopril 10 Mg Tab) 10 mg PO QAM [facility] Stop: 02/08/23 08:59 Last Admin: 01/09/23 07:53 Dose: 10 mg Lorazepam (Lorazepam 0.5 Mg Tab) 0.5 mg PO Q8H PRN PRN Reason: Sedation/Anxiety Stop: 02/07/23 10:33 Lorazepam (Lorazepam 2 Mg/1 Ml Vial) 0.5 mg IV Q8H PRN PRN Reason: Sedation/Anxiety Stop: 02/07/23 10:33 Magnesium Hydroxide (Magnesium Hydroxide Susp 30 Ml Udc) 30 ml PO Q24H PRN PRN Reason: Constipation Stop: 02/07/23 10:33 Metoclopramide HCl (Metoclopramide Hcl Inj 5 Mg/Ml 2 Ml Vial) 10 mg IV Q6H PRN PRN Reason: Nausea &/or Vomiting Stop: 02/07/23 10:33 Naloxone HCl (Naloxone Hcl 0.4 Mg/1 Ml Vial/Carp) 0.1 mg IV Q5M PRN PRN Reason: Oversedation/Resp depression Stop: 02/07/23 10:33 Ondansetron HCl (Ondansetron Inj 2 Mg/Ml 2 Ml Vial) 4 mg IV Q6H PRN PRN Reason: Nausea &/or Vomiting Stop: 02/07/23 10:33 Ondansetron HCl (Ondansetron 4 Mg Od Tab) 4 mg PO Q6H PRN PRN Reason: Nausea Stop: 02/07/23 10:33 Oxycodone HCl (Oxycodone Hcl Ir 5 Mg Tab (Immediate Release)) 5 - 10 mg PO Q4H PRN PRN Reason: Pain & Pre PT Stop: 01/22/23 10:33 Last Admin: 01/09/23 20:13 Dose: 10 mg Pantoprazole Sodium (Pantoprazole 40 Mg Tab) 40 mg PO QAM [facility] Stop: 02/08/23 08:59 Last Admin: 01/09/23 07:53 Dose: 40 mg Pneumococcal Polyvalent Vaccine (Do Not Administer Pneumococcal Vaccine) 1 each N/A PRN PRN PRN Reason: Notification Stop: 02/07/23 10:33 Polyethylene Glycol (Polyethylene (Miralax) 17 Gm Pack) 17 gm PO Q6 [facility] Stop: 02/08/23 05:59 Last Admin: 01/10/23 05:40 Dose: Not Given Senna/Docusate Sodium (Docusate Sodium/Senna 50/8.6mg Tab) 2 tab PO HS [facility] Stop: 02/07/23 20:59 Last Admin: 01/09/23 20:13 Dose: 2 tab Simethicone (Simethicone 80 Mg Chew) 80 mg PO Q6H PRN PRN Reason: Flatulence Stop: 02/08/23 13:09 Sodium Biphosphate/Sodium Phosphate (Sod Phosphate/Sod Biphosphate Enema 132 Ml Btl) 132 ml [place] ONE PRN PRN Reason: Constipation Stop: 02/07/23 10:33 Tramadol HCl (Tramadol Hcl 50 Mg Tablet) 50 - 100 mg PO Q4H PRN PRN Reason: Moderate-Severe pain & Pre PT Stop: 02/07/23 10:33
--- NOTE | 2023-01-10 09:07 | Discharge Summary ---
Date of Service January 10, 2023 Admission HPI Per Admitting Provider This is a 57-year-old female who presents with chronic persistent back and leg pain after failing course of nonoperative care she is here for surgical invention. Principal Diagnosis Lumbar spinal stenosis with radiculopathy Discharge Data Allergies Allergy/AdvReac Type Severity Reaction Status Date / Time peanut Allergy Severe Swelling Verified 01/08/23 07:06 of Lip/Tongue/Throat Penicillins Allergy Severe SWOLLEN Verified 01/08/23 06:16 LIPS tree nut Allergy Severe facial Verified 01/08/23 06:16 swelling Consultations 01/08/23 10:34 Consult Hospitalist Routine Procedures Performed Operation Date: 01/08/23 07:45 Actual Procedures p L5-S1 Decompression and Fusion, Spinal Cord Monitoring(Not Applicable) - Tony Gomez DO Ordered Studies 01/08/23 07:45 FL lumbar spine 2-3V Routine Hospital Course (1) Neurogenic claudication due to lumbar spinal stenosis: Patient underwent lumbar decompression fusion tolerated this well was taken to orthopedic for postoperative. Postop day 1 she was up and ambulating. She progressed to postop day #2. Excellent strength testing. LYNN drain decreasing appropriately. Subsequently discharged home. Discharge orders and instructions found in the chart for further review. Total Time Total Time Spent Total Time Spent (In Minutes): 20 minutes Discharge Plan Discharge Items Patient Disposition: Home - Self-Care Reason For Visit: Spondylolithesis, [place] Discharge Diagnosis: Spondylolisthesis with radiculopathy Activity: As commented below Non-emergency contact: Primary Care Provider Call non-emergency contact if: you have any medication questions Follow-up/Referrals: Curtis Gunderson PA-C [Primary Care Provider] - Diet: Regular Addtl Attending Provider Instructions: ACTIVITY RECOMMENDATIONS: SELF CARE INSTRUCTIONS AFTER THORACIC/LUMBAR FUSIONS 1. You may walk to your tolerance. It is good exercise for your legs and back. Expect some back and intermittent leg aches and pains. 2. You may perform "counter-top" level activities (make a sandwich, keshia with a project, etc.). 3. No bending or lifting of more than 10 pounds or back twisting of any nature (roll like a log when turning in bed). 4. You may ride in a car for 20-30 minutes at a time. No driving until after your first visit with your doctor. 5. Frequent changes of position and restricting sitting to 30 minutes at a time will help limit the amount of back spasms and stiffness you may experience. 6. You may discontinue the use of ambulatory aids (cane, crutches, etc.) once your strength and confidence allow. 7. You may combination saw operator the shower and let water strike your incision when you arrive home at least once daily. Do not take a tub bath, sit in a hot tub or go into a swimming pool until after your first recheck in the office. SPECIAL CARE INSTRUCTIONS: VERY IMPORTANT TO READ AND REVIEW A. Your surgical incision has been closed with a cosmetic suture under the skin that will dissolve in about 6 weeks. In 14 days, you can use a pair of clean scissors and cut the suture that is left outside of the skin at the ends of your incision. 1. The small skin tapes can be removed 7 days after surgery if they have not fallen off by that point. 2. You may keep the wound open to air as much as possible to promote healing after post-op day number 5 unless told otherwise by your doctor. 3. If you think the wound looks like it is becoming infected (redness or worsening drainage) and/or you are experiencing fever, chill or worsening back pain and muscle spasms, contact the office so that we may evaluate you as soon as possible. B. Complications are uncommon, but please contact us if you have any signs or symptoms of: 1. wound infection (fever higher than 102.5 degrees F, redness, separation of wound, drainage, or increasing pain from the incision) 2. blood clots in legs (pain, swelling, redness and warmth in legs) 3. urinary tract infection (fever higher than 102.5 degrees F, burning upon urination or increased frequency of urination) 4. nerve problems (inability to walk on your toes or heels, numbness, loss of bowel or bladder control) 5. any other symptoms that concern you C. Please call the office at if you have any concerns or questions about your operation or recovery. D. No smoking! Smoking drastically decreases the chance of a solid fusion. E. Do not take any anti-inflammatory medications (Indocin, Advil, Motrin, Aspirin, Naprosyn, etc.) as these may inhibit the chance of a solid fusion. Tylenol is okay to take for pain. MANAGING PAIN AFTER SPINAL SURGERY 1. Narcotic medication is intended for short-term use and will be provided for surgical pain. Surgical pain usually lasts for a period of 4-6 weeks. Narcotic medication includes Percocet, Vicodin, Darvocet, Tylenol #3 or Lortab. 2. Longer-term pain is more appropriately treated with non-narcotic medication such as Tylenol ES. 3. Muscle spasm is not appropriately treated with narcotics. Muscle relaxers such as Soma, Flexeril or Skelaxin can be used along with Tylenol ES. 4. Remember that we all live with some "aches and pains". This is not unusual or uncommon after an injury or as we get older. a. Back pain is expected and may include muscle spasms for 4 to 6 weeks after surgery. The pain should gradually improve. If the pain worsens for no apparent reason, please contact the office. b. Intermittent leg pain may also be experienced and should not be concerned about unless it worsens for no apparent reason. If so, please contact the office. 5. We will provide appropriate medication within the normal guidelines of their prescribed use. We will also be very cautious and aware of potential abuse and extended duration of patients' medication needs. a. Pain medications are for your comfort and to assist with sleep and rest so that the tissue can heal. They are not provided in order to return to normal activity and should not be used through the day. To do so or worsening pain at night can result from ongoing tissue damage and development of tolerance to the prescribed medicine. 6. Please allow 2-3 days to process refills. Prescriptions will not be mailed but must be picked up at the office. FOLLOW UP VISIT: Keep your scheduled follow-up appointment. Any questions, please call the office at . Pending Studies at Discharge: No Stand-Alone Forms: My [facility], Smoking Cessation Medications and DC Order Prescriptions: New oxycodone 5 mg tablet 5 mg PO DAILY PRN (Reason: pain) Qty: 30 0RF tramadol 50 mg tablet 50 mg PO Q6H PRN (Reason: pain, moderate) Qty: 30 0RF Continued fluticasone propion-salmeterol [Advair Diskus] 250-50 mcg/dose Blister With Device 1 inh INHALATION BID omeprazole 40 mg Capsule,Delayed Release(Dr/Ec) 40 mg PO QAM lisinopril 10 mg Tablet 10 mg PO QAM eszopiclone [Lunesta] 2 mg Tablet 2 mg PO HS levalbuterol tartrate [Xopenex HFA] 45 mcg/actuation Hfa Aerosol Inhaler 2 inh INHALATION Q6H PRN (Reason: Shortness Of Breath) fenofibrate nanocrystallized 145 mg Tablet 145 mg PO QAM tramadol 50 mg Tablet 50 mg PO BID PRN (Reason: Pain) cyanocobalamin (vitamin B-12) 1,000 mcg/mL Solution 1,000 mcg IM MONTHLY glucosamine-chondroitin [Osteo Bi-Flex] 250-200 mg Tablet 2 tab PO QAM Rx Instructions: give after food/meal Discharge Orders: Discharge Order (Routine); Ordered 01/10/23 Ordered By: Tony Gomez Admission Data Admit Date/Time: 01/08/23 09:27 Attending Provider: Tony Gomez Admit Provider: Tony Gomez Primary Care Provider: Curtis Gunderson Other Providers: Cande Chang ; Adan Bartlett ; Karina Guzman
[2023-01-10] MEDS: FENOFIBRATE NANOCRYSTALLIZED 145 MG TABLET PO SCH (09:26)
[2023-01-10] MEDS: FLUTICASONE/VILANTEROL 200/25MCG 14 PUFFS/INHALER INH SCH (09:27)
[2023-01-10] MEDS: lisinopril 10 MG TAB PO SCH (09:27)
[2023-01-10] MEDS: PANTOprazole 40 MG TAB PO SCH (09:28)
[2023-01-10] MEDS: dexAMETHasone 6 MG in SYRINGE 0 ML IV SCH (09:29)
== END 2023-01-10 11:36 | disposition home or self-care (01) | DRG 455 ==
LOC: ASU 05:53 → 3E 09:27